=== PATIENT | female | born 1965 | race Caucasian/White ===

== ENCOUNTER 2024-08-02 22:06 | Emergency (ER) | payer MEDICAID ==
[2024-08-02] MEDS: HYDROmorphone 1 MG/ML Syringe IVPUSH ONE (23:26)
[2024-08-03] MEDS ORDERED: Propofol 200 MG/20 ML SDV ONE (00:04)
== END 2024-08-03 02:00 | disposition home or self-care (01) ==
LOC: JP.ED 22:06
DX: S43.004A Unspecified dislocation of right shoulder joint, initial encounter (principal); F17.210 Nicotine dependence, cigarettes, uncomplicated; Z88.2 Allergy status to sulfonamides; Z79.899 Other long term (current) drug therapy; W19.XXXA Unspecified fall, initial encounter
CPT/HCPCS: 73020; 73030; 96374; 99283; J1171; J2704

== ENCOUNTER 2024-08-08 09:17 | Emergency (ER) | payer MEDICAID ==
[2024-08-08] MEDS: fentaNYL 100 MCG/2 ML SDV IM ONE (10:40)
== END 2024-08-08 11:14 | disposition home or self-care (01) ==
LOC: JP.ED 09:17
DX: S42.291A Other displaced fracture of upper end of right humerus, initial encounter for closed fracture (principal); I10 Essential (primary) hypertension; E78.00 Pure hypercholesterolemia, unspecified; J44.9 Chronic obstructive pulmonary disease, unspecified; F17.210 Nicotine dependence, cigarettes, uncomplicated; Z88.2 Allergy status to sulfonamides; Z79.899 Other long term (current) drug therapy; Z79.51 Long term (current) use of inhaled steroids; X58.XXXA Exposure to other specified factors, initial encounter; Y93.89 Activity, other specified
CPT/HCPCS: 73030-26-RT; 73030-RT; 96372; 99283; J3010

== ENCOUNTER 2024-08-21 01:29 | Emergency (ER) | payer MEDICAID ==
[2024-08-21 01:56] LABS: BASOPHILS ABSOLUTE AUTO 0.08 K/uL (0.00-0.10); BASOPHILS PERCENT AUTO 1.7 % (0.1-1.3); EOSINOPHILS PERCENT AUTO 4.3 % (0.0-5.4); HEMATOCRIT 33.8 % (34.3-46.0); IMMATURE GRAN ABSOLUTE AUTO 0.05 K/uL (0.00-0.23); IMMATURE GRAN PERCENT AUTO 1.1 % (0.0-0.7); LYMPHOCYTES ABSOLUTE AUTO 1.58 K/uL (0.8-3.3); LYMPHOCYTES PERCENT AUTO 34.2 % (11.4-47.7); MEAN CORPUSCULAR HEMOGLOBIN 29.3 pg (31.6-35.5); MEAN CORPUSCULAR HGB CONC 32.5 g/dL (31.6-35.5); MEAN CORPUSCULAR VOLUME 89.9 fL (81.4-99.0); MONOCYTES ABSOLUTE AUTO 0.61 K/uL (0.20-0.90); MONOCYTES PERCENT AUTO 13.2 % (3.3-12.6); NEUTROPHILS PERCENT AUTO 45.5 % (40.0-78.1); PLATELET COUNT,PLT 145 K/uL (130-375); RED BLOOD CELL COUNT 3.76 M/uL (3.77-5.24); WHITE BLOOD CELL COUNT,WBC 4.6 K/uL (3.2-11.0)
[2024-08-21] MEDS: oxyCODONE 5 MG Tab PO ONE (01:59)
[2024-08-21 02:11] LABS: CALCIUM 8.6 mg/dL (8.5-10.1); EST CRCL DRUG DOSING (CG) 42.97 mL/min
[2024-08-21] MEDS: Potassium Chloride 20 MEQ Tab.ER PO ONE (02:49)
== END 2024-08-21 03:03 | disposition home or self-care (01) ==
LOC: JP.ED 01:29
DX: S40.211A Abrasion of right shoulder, initial encounter (principal); I10 Essential (primary) hypertension; E78.00 Pure hypercholesterolemia, unspecified; J44.9 Chronic obstructive pulmonary disease, unspecified; Z88.2 Allergy status to sulfonamides; Z79.899 Other long term (current) drug therapy; W55.03XA Scratched by cat, initial encounter; Y93.89 Activity, other specified
CPT/HCPCS: 36415; 80048; 85025; 99284; A9270

== ENCOUNTER 2024-11-27 09:01 | Emergency (ER) | payer MEDICAID | END 2024-11-27 11:47 | disposition home or self-care (01) | LOC: JP.ED 09:01 | DX: S06.0XAA Concussion with loss of consciousness status unknown, initial encounter (principal); S00.83XA Contusion of other part of head, initial encounter; I10 Essential (primary) hypertension; J44.9 Chronic obstructive pulmonary disease, unspecified; E78.00 Pure hypercholesterolemia, unspecified; F17.210 Nicotine dependence, cigarettes, uncomplicated; Z79.899 Other long term (current) drug therapy; Z88.2 Allergy status to sulfonamides; W01.0XXA Fall on same level from slipping, tripping and stumbling without subsequent striking against object, initial encounter | CPT/HCPCS: 70450; 70450-26; 72125; 72125-26; 76377; 99283 ==